=== PATIENT | female | born 1995 | race Caucasian/White ===

== ENCOUNTER 2020-04-07 03:36 | Emergency (ER) | payer SELFPAY ==
[~2020-04-07] VITALS: Ht 160 cm; Wt 54.4 kg
[2020-04-07 03:44] VITALS: BP_SYST 131
[2020-04-07 03:47] VITALS: BP_SYST 131
== END 2020-04-07 04:04 ==
LOC: SED 03:36
DX: Z02.89 Encounter for other administrative examinations (principal); V49.69XA Unspecified car occupant injured in collision with other motor vehicles in traffic accident, initial encounter; Y93.89 Activity, other specified; Y92.89 Other specified places as the place of occurrence of the external cause; Y99.8 Other external cause status
CPT/HCPCS: 99283